=== PATIENT | female | born 1980 | race Caucasian/White ===

== ENCOUNTER 2016-05-22 11:16 | Emergency (ER) | payer OTHER ==
[~2016-05-22] VITALS: Wt 113.4 kg
[~2016-05-22 11:16] MED LIST: HYDROCODONE BIT1 T11 PO; SERTRALINE50 MG PO; SYNTHROID0.2 M1 PO; TOPROL XL25 MG PO
[2016-05-22 14:40] LABS: BILIRUBIN NEGATIVE (NEGATIVE); BLOOD 3+ (NEGATIVE); CLARITY SL CLOUDY (CLEAR); COLOR RED (YELLOW); GLUCOSE NEGATIVE (NEGATIVE); KETONE NEGATIVE (NEGATIVE); LEUKO ESTERASE NEGATIVE (NEGATIVE); NITRITE NEGATIVE (NEGATIVE); PH 7.5 (5.0-9.0); PROTEIN NEGATIVE (NEGATIVE); SPECIFIC GRAVITY <= 1.005 (1.005-1.030); UROBILINOGEN 0.2 E.U./dl (0.2-1.0)
[2016-05-22 14:46] LABS: RBC TNTC rbc/hpf (0-2); WBC 0-2 wbc/hpf (0-5)
[2016-05-22 14:47] LABS: URINE REFLEX COMMENT YES (NO)
[2016-05-22] MEDS ORDERED: NORCO 10-325 T1 EACH PO (14:58)
[2016-05-22] MEDS ORDERED: CYCLOBENZAPRINE10 MG PO (14:58)
== END 2016-05-22 15:09 | disposition home or self-care (01) ==
LOC: ED 11:16
PROVIDERS: Emergency Medicine
DX: S39.012A Strain of muscle, fascia and tendon of lower back, initial encounter (principal); Z79.899 Other long term (current) drug therapy; X58.XXXA Exposure to other specified factors, initial encounter; Y93.89 Activity, other specified; Y92.89 Other specified places as the place of occurrence of the external cause; Y99.9 Unspecified external cause status

== ENCOUNTER 2016-07-22 14:45 | Emergency (ER) | payer OTHER ==
[~2016-07-22 14:45] MED LIST changes: +CYCLOBENZAPRINE10 MG PO; +NORCO 10-325 T1 EACH PO
[2016-07-22] MEDS ORDERED: AMLODIPINE BESY1 TAB PO (14:55)
[2016-07-22] MEDS ORDERED: IBU800 M1 PO (14:58)
[2016-07-22] MEDS ORDERED: HYDROCODONE BIT1 T11 PO (16:36)
[2016-07-22] MEDS ORDERED: CYCLOBENZAPRINE5 M3 PO (16:36)
== END 2016-07-22 17:06 | disposition home or self-care (01) ==
LOC: ED 14:45
DX: M54.5 Low back pain (principal); M79.605 Pain in left leg; Z79.899 Other long term (current) drug therapy; X58.XXXA Exposure to other specified factors, initial encounter; Y93.89 Activity, other specified; Y92.89 Other specified places as the place of occurrence of the external cause; Y99.9 Unspecified external cause status

== ENCOUNTER 2016-10-04 17:17 | Emergency (ER) | payer OTHER ==
[~2016-10-04] VITALS: Wt 167.8 kg
[~2016-10-04 17:17] MED LIST changes: +AMLODIPINE BESY1 TAB PO; +CYCLOBENZAPRINE5 M3 PO; +IBU800 M1 PO
== END 2016-10-04 23:07 | disposition home or self-care (01) ==
LOC: ED 17:17
DX: M79.662 Pain in left lower leg (principal); M79.661 Pain in right lower leg; R11.2 Nausea with vomiting, unspecified; R19.7 Diarrhea, unspecified; Z79.899 Other long term (current) drug therapy

== ENCOUNTER 2017-02-21 01:29 | Inpatient (IN) | payer OTHER ==
[~2017-02-21] VITALS: Ht 165.1 cm; Wt 166.5 kg
[2017-02-21] VITALS (30 sets, daily range): BP systolic 79–152; BP diastolic 37–83
--- NOTE | ~2017-02-21 | CON ---
[place], [place] REPORT OF CONSULTATION NAME: ESTEVAN DECKER UNIT #: [id number] ROOM: [facility] DOCTOR: KIKO ROBERTSON ED.D) BIRTHDATE: [birth year] DOS: 02/21/2017 HISTORY OF PRESENT ILLNESS: The patient is a 36-year-old female referred by the hospitalists after a suicide attempt. At the present time, she is in the intensive care unit at [facility]. She states she is single, but had a longtime boyfriend who of a drug overdose in December of 2016. 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 [facility] [place] [facility]. Her medical history is pertinent for anxiety, bipolar disorder, borderline personality disorder, hypothyroidism, morbid obesity. This patient states she drinks 1-2 drinks per day. She was awake, alert and oriented in all three spheres. She was very tearful and felt embarrassed because she had attempted to take her antihypertensives and attempt to commit suicide. She has attempted suicide 5 times in the past and has been hospitalized on several occasions including one hospitalization at [facility] in [place], [place]. Her medications at present include amlodipine, clonidine, Synthroid, Rexulti, Cymbalta, BuSpar, Ativan. She states she does follow at [facility] here in [place] and she sees Elizabeth Ngo who is a nurse practitioner for her medications. She also sees Franklin who is a therapist and also Jovan who is a block and case maker. She does have an appointment this Tuesday. She states she was quite depressed and suicidal because of multiple things were happening in her life. She also has some legal problems and is not allowed to leave the [facility]. At the present time, she adamantly denies any suicidal ideation or plan. She states that she was referred to intensive outpatient in [place], [place], but is uncertain whether or not she can get there or not. She states she does not want to be hospitalized again. She states she does not need to be hospitalized, but does need outpatient care. She will follow up at [facility]. At the present time, she is not suicidal, so therefore she does not need to be pink slipped. She states she will be following with her therapist on Tuesday. She is not certain where she is going to go when she is discharged from the hospital and I asked nursing service to contact case management to help her with any discharge plans necessary. DIAGNOSES: 1. Bipolar 1 -- mixed. 2. Borderline personality disorder. RECOMMENDATIONS: 1. The patient should followup outpatient at [facility] on 02/23/2017. 2. Case management should help this patient with discharge plan once she is medically stable. Thank you very much for this consult. [place], [place] REPORT OF CONSULTATION NAME: ESTEVAN DECKER UNIT #: [id number] ROOM: [facility] DOCTOR: KIKO ROBERTSON ED.D (MELISSA) BIRTHDATE: [birth year] KIKO ROBERTSON ED.D CM:CONSTR:REPORT OF CONSULTATION 170 02/21/17 191 interface
[2017-02-21 01:55] LABS: BASO # 0.1 10*3/uL (0.0-0.1); BASO % 0.9 % (0.0-1.0); EOS # 0.3 10*3/uL (0.0-0.4); EOS % 2.9 % (1.0-4.0); HEMATOCRIT 34.1 % (37.0-47.0); HEMOGLOBIN 10.4 g/dl (12.0-16.0); LYMPH # 2.9 10*3/uL (1.3-4.4); LYMPH % 25.1 % (27.0-41.0); MEAN CELL VOLUME 84.4 fl (81.0-99.0); MEAN CORPUSCULAR HGB 25.7 pg (27.0-31.0); MEAN CORPUSCULAR HGB CONC 30.5 g/dl (33.0-37.0); MEAN PLATELET VOLUME 9.1 fl (9.6-12.3); MONO # 0.5 10*3/uL (0.1-1.0); MONO % 4.1 % (3.0-9.0); NEUT # 7.6 10*3/uL (2.3-7.9); NEUT % 66.5 % (47.0-73.0); PLATELET COUNT AUTOMATED 437 10*3/uL (130-400); RED BLOOD COUNT 4.04 10*6/uL (4.10-5.10); RED CELL DISTRI WIDTH 15.4 % (0-14.5); WHITE BLOOD COUNT 11.4 10*3/uL (4.8-10.8)
[2017-02-21 02:12] LABS: ACETAMINOPHEN (TYLENOL) < 2.0 ug/ml (10-30); ALKALINE PHOSPHATASE 90 U/L (45-117); BUN 10 mg/dl (7-24); CHLORIDE 108 mmol/L (98-107); CREATININE 1.01 mg/dL (0.55-1.02); POTASSIUM 3.2 mmol/L (3.5-5.1); SGOT/AST 18 IU/L (3-35); SGPT/ALT 22 U/L (12-78); SODIUM 144 mmol/L (136-145); TOTAL PROTEIN 6.5 gm/dL (6.4-8.2)
[2017-02-21] MEDS ORDERED: CLONIDINE HCL0.1 MG PO (05:12)
[2017-02-21 05:31] LABS: BASO # 0.1 10*3/uL (0.0-0.1); BASO % 0.8 % (0.0-1.0); EOS # 0.3 10*3/uL (0.0-0.4); EOS % 2.5 % (1.0-4.0); HEMATOCRIT 37.1 % (37.0-47.0); HEMOGLOBIN 11.6 g/dl (12.0-16.0); LYMPH # 1.7 10*3/uL (1.3-4.4); LYMPH % 15.8 % (27.0-41.0); MEAN CELL VOLUME 83.4 fl (81.0-99.0); MEAN CORPUSCULAR HGB 26.1 pg (27.0-31.0); MEAN CORPUSCULAR HGB CONC 31.3 g/dl (33.0-37.0); MONO # 0.5 10*3/uL (0.1-1.0); MONO % 4.6 % (3.0-9.0); NEUT # 8.1 10*3/uL (2.3-7.9); NEUT % 75.7 % (47.0-73.0); PLATELET COUNT AUTOMATED 395 10*3/uL (130-400); RED BLOOD COUNT 4.45 10*6/uL (4.10-5.10); RED CELL DISTRI WIDTH 15.2 % (0-14.5); WHITE BLOOD COUNT 10.6 10*3/uL (4.8-10.8)
[2017-02-21 05:49] LABS: ALBUMIN 3.2 gm/dl (3.1-4.5); ALKALINE PHOSPHATASE 98 U/L (45-117); BUN 8 mg/dl (7-24); CHLORIDE 109 mmol/L (98-107); CHOLESTEROL 125 mg/dL (<200); CREATININE 0.78 mg/dL (0.55-1.02); HDL CHOLESTEROL 49 mg/dl (40-60); LDL CHOLESTEROL 48 mg/dL (9-159); PHOSPHOROUS 2.3 mg/dL (2.5-4.9); POTASSIUM 2.9 mmol/L (3.5-5.1); SGOT/AST 15 IU/L (3-35); SGPT/ALT 22 U/L (12-78); SODIUM 144 mmol/L (136-145); TOTAL PROTEIN 7.2 gm/dL (6.4-8.2); TRIGLYCERIDES 142 mg/dl (<150); VLDL CHOLESTEROL 28 mg/dL (6-40)
[2017-02-21 05:50] LABS: FREE T4 1.28 ng/dl (0.76-1.46)
[2017-02-21 06:01] LABS: TROPONIN I 0.049 ng/ml (<0.045)
[2017-02-21 06:45] LABS: ACT PARTIAL THROMBO TIME 23.9 SECONDS (20.8-31.5); INTERNATIONAL NORM RATIO 0.9 (2.0-3.5)
[2017-02-21 07:42] LABS: VITAMIN D, 25-HYDROXY 19.3 ng/mL (30-100)
[2017-02-21 08:16] LABS: BILIRUBIN NEGATIVE (NEGATIVE); BLOOD 3+ (NEGATIVE); CLARITY CLOUDY (CLEAR); COLOR YELLOW (YELLOW); GLUCOSE NEGATIVE (NEGATIVE); KETONE NEGATIVE (NEGATIVE); LEUKO ESTERASE NEGATIVE (NEGATIVE); NITRITE NEGATIVE (NEGATIVE); PH 5.5 (5.0-9.0); SPECIFIC GRAVITY <= 1.005 (1.005-1.030); UROBILINOGEN 0.2 E.U./dl (0.2-1.0)
[2017-02-21 08:26] LABS: RBC TNTC rbc/hpf (0-2)
[2017-02-21 08:31] LABS: URINE AMPHETAMINES < 1000 (1000ng/ml); URINE BARBITURATES < 200 (200ng/ml); URINE BENZODIAZEPINES < 200 (200ng/ml); URINE CANNABINOIDS (THC) < 50 (50ng/ml); URINE COCAINE > 300 (300ng/ml); URINE METHADONE < 300 (300ng/ml); URINE OPIATES < 300 (300ng/ml)
[2017-02-21 08:50] LABS: URINE PHENCYCLIDINE < 25 (25ng/ml)
[2017-02-22] VITALS: BP 118/67
[2017-02-22 04:00] VITALS: BP 121/79
[2017-02-22 05:43] LABS: BASO # 0.1 10*3/uL (0.0-0.1); BASO % 0.8 % (0.0-1.0); EOS # 0.3 10*3/uL (0.0-0.4); EOS % 3.3 % (1.0-4.0); LYMPH # 1.5 10*3/uL (1.3-4.4); LYMPH % 16.5 % (27.0-41.0); MEAN CELL VOLUME 85.8 fl (81.0-99.0); MEAN CORPUSCULAR HGB 26.5 pg (27.0-31.0); MEAN CORPUSCULAR HGB CONC 30.8 g/dl (33.0-37.0); MEAN PLATELET VOLUME 9.4 fl (9.6-12.3); MONO # 0.4 10*3/uL (0.1-1.0); MONO % 4.7 % (3.0-9.0); NEUT # 6.8 10*3/uL (2.3-7.9); NEUT % 74.3 % (47.0-73.0); PLATELET COUNT AUTOMATED 300 10*3/uL (130-400); RED BLOOD COUNT 3.59 10*6/uL (4.10-5.10); RED CELL DISTRI WIDTH 15.6 % (0-14.5); WHITE BLOOD COUNT 9.1 10*3/uL (4.8-10.8)
[2017-02-22 05:46] LABS: BUN 12 mg/dl (7-24); CHLORIDE 108 mmol/L (98-107); CREATININE 0.87 mg/dL (0.55-1.02); PHOSPHOROUS 2.9 mg/dL (2.5-4.9); POTASSIUM 3.6 mmol/L (3.5-5.1); SODIUM 140 mmol/L (136-145)
[2017-02-22 05:52] LABS: HEMATOCRIT 30.8 % (37.0-47.0); HEMOGLOBIN 9.5 g/dl (12.0-16.0)
[2017-02-22 08:00] VITALS: BP 131/74
[2017-02-22 12:00] VITALS: BP 131/73
== END 2017-02-22 14:15 | disposition home or self-care (01) | DRG 917 ==
LOC: ED 01:29 → EDHOLD 02:48 → ICCU 02:48
PROVIDERS: Emergency Medicine Emergency Medical Services; Hospitalist; Internal Medicine
DX: T46.5X2A Poisoning by other antihypertensive drugs, intentional self-harm, initial encounter (principal); I21.A1 Myocardial infarction type 2; E44.0 Moderate protein-calorie malnutrition; R65.10 Systemic inflammatory response syndrome (SIRS) of non-infectious origin without acute organ dysfunction; E87.8 Other disorders of electrolyte and fluid balance, not elsewhere classified; I95.2 Hypotension due to drugs; F33.2 Major depressive disorder, recurrent severe without psychotic features; E66.01 Morbid (severe) obesity due to excess calories; R45.851 Suicidal ideations; Z68.44 Body mass index [BMI] 60.0-69.9, adult; F14.90 Cocaine use, unspecified, uncomplicated; F10.920 Alcohol use, unspecified with intoxication, uncomplicated; F12.90 Cannabis use, unspecified, uncomplicated; G93.2 Benign intracranial hypertension; F41.9 Anxiety disorder, unspecified; E03.9 Hypothyroidism, unspecified; R00.1 Bradycardia, unspecified; R73.9 Hyperglycemia, unspecified; D64.9 Anemia, unspecified; D72.810 Lymphocytopenia; E87.6 Hypokalemia; E55.9 Vitamin D deficiency, unspecified; F60.3 Borderline personality disorder; Y92.89 Other specified places as the place of occurrence of the external cause; Z79.899 Other long term (current) drug therapy; Z90.49 Acquired absence of other specified parts of digestive tract; Z82.49 Family history of ischemic heart disease and other diseases of the circulatory system; Z83.6 Family history of other diseases of the respiratory system; Z81.8 Family history of other mental and behavioral disorders